=== PATIENT | female | born 2000 | race Caucasian/White ===

== ENCOUNTER 2018-09-30 19:32 | Emergency (ER) | payer OTHER ==
[~2018-09-30] VITALS: Ht 157.5 cm; Wt 77.1 kg
[2018-09-30] MEDS ORDERED: BACTRIM DS TAB1 EACH PO (22:11)
[2018-09-30] MEDS ORDERED: MEDROLDOSEPACK PO (22:11)
[2018-09-30 22:21] VITALS: BP 126/70
== END 2018-09-30 22:21 | disposition home or self-care (01) ==
LOC: M.ERS 19:32
DX: G51.0 Bell's palsy (principal); Z88.0 Allergy status to penicillin